=== PATIENT | female | born 1970 | race African-American/Black ===

== ENCOUNTER 2021-08-28 18:32 | Inpatient (IN) | payer OTHER ==
[~2021-08-28] VITALS: Ht 157.5 cm; Wt 70.4 kg
[~2021-08-28 18:32] MED LIST: ACYC400T20 PO; FLUO15CR TD
[2021-08-28] MEDS ORDERED: VANCOMYCIN HCL 1 GM/D5% WATER 200 ML IV ONE (23:45)
[2021-08-29 00:22] LABS: COVID AG,FIA SOURCE NASOPHARYNGEAL
[2021-08-29 00:26] LABS: BASOPHILS % (AUTO) 0.4 % (0.0-2.0); EOSINOPHILS % (AUTO) 1.8 % (1.0-6.0); HEMOGLOBIN 10.5 g/dL (12.0-16.0); LYMPHOCYTES # (AUTO) 1.2 K/uL (1.0-4.8); MEAN CORPUSCULAR HEMOGLOBIN 29.8 pg (26.0-34.0); MEAN CORPUSCULAR VOLUME 90 fL (80-100); MONOCYTES # (AUTO) 0.5 K/uL (0.1-1.0); MONOCYTES % (AUTO) 7.8 % (2.0-9.0); NEUTROPHILS # (AUTO) 4.3 K/uL (1.8-7.7); PLATELET COUNT (AUTO) 282 K/uL (150-450); RED BLOOD CELL COUNT(AUTO) 3.54 MIL/uL (4.00-5.20); RED CELL DISTRIBUTION WIDTH 13.1 % (11.5-14.5)
[2021-08-29 00:33] LABS: ANION GAP 3 mmol/L (8-16); CALCIUM, TOTAL 8.7 mg/dL (8.8-10.5); CARBON DIOXIDE 33 mmol/L (22-29); CHLORIDE 103 mmol/L (98-107); CREATININE 0.79 mg/dL (0.60-1.30); GLOMERULAR FILTR. RATE CALC > 60 mL/min (>60); GLUCOSE,RANDOM 96 mg/dL (70-110); POTASSIUM 3.7 mmol/L (3.5-5.1); SODIUM SERUM 139 mmol/L (136-145); UREA NITROGEN, BLOOD 14 mg/dL (7-18)
[2021-08-29 00:40] LABS: ALANINE AMINOTRANSFERASE 16 U/L (12-78); ALBUMIN 2.9 g/dL (3.4-5.0); ALKALINE PHOSPHATASE 104 U/L (46-116); ASPARTATE AMINOTRANSFERASE 15 U/L (15-37); BILIRUBIN,TOTAL 0.7 mg/dL (0.1-1.0); TOTAL PROTEIN, SERUM 7.4 g/dL (6.4-8.2)
[2021-08-29] MEDS ORDERED: ACETAMINOPHEN 325 MG TABLET PO PRN (01:00)
[2021-08-29] MEDS ORDERED: ONDANSETRON HCL 4 MG/2 ML VIAL IVP PRN ×2 (01:00→02:30)
[2021-08-29] MEDS ORDERED: CefTRIAXone 1 GM/DEXTROSE 50 ML IV SCH (03:00)
[2021-08-29] MEDS ORDERED: SODIUM CHLORIDE 0.9% 100 ML ONE (06:34)
[2021-08-29] MEDS ORDERED: IOHEXOL 350 MG/ML 100 ML VIAL ONE (06:34)
[2021-08-29] MEDS: HEPARIN SODIUM,PORCINE 5,000 UNITS/ML VIAL SQ SCH ×2 (08:53→19:41)
[2021-08-29] MEDS: VANCOMYCIN HCL 750 MG in DEXTROSE 5%-WATER 250 ML IV SCH ×2 (08:53→19:41)
[2021-08-29] MEDS: CLINDAMYCIN 900 MG/D5% WATER 50 ML IV SCH ×2 (13:29→21:23)
[2021-08-29] MEDS: CefTRIAXone SODIUM 2 GM in DEXTROSE 5%-WATER 50 ML IV SCH (15:26)
[2021-08-29 19:55] VITALS: BP 96/67
[2021-08-29] MEDS: ACETAMINOPHEN 325 MG TABLET PO PRN (20:43)
[2021-08-30] MEDS: VANCOMYCIN HCL 750 MG in DEXTROSE 5%-WATER 250 ML IV SCH ×3 (00:37→15:28)
[2021-08-30] MEDS: HEPARIN SODIUM,PORCINE 5,000 UNITS/ML VIAL SQ SCH ×3 (00:37→15:28)
[2021-08-30] MEDS ORDERED: INFLUENZA VIRUS VACCINE QVS 2021-22 (6MO+)/PF 60 MCG/0.5 ML SYRINGE IM. ONE (04:30)
[2021-08-30] MEDS: CLINDAMYCIN 900 MG/D5% WATER 50 ML IV SCH ×3 (05:45→20:25)
[2021-08-30 08:11] VITALS: BP 128/65
[2021-08-30] MEDS: ACETAMINOPHEN 325 MG TABLET PO PRN ×2 (08:38→14:00)
[2021-08-30 11:53] LABS: BASOPHILS % (AUTO) 0.6 % (0.0-2.0); EOSINOPHILS % (AUTO) 1.8 % (1.0-6.0); HEMATOCRIT 38.5 % (36-46); HEMOGLOBIN 12.7 g/dL (12.0-16.0); LYMPHOCYTES # (AUTO) 1.1 K/uL (1.0-4.8); LYMPHOCYTES % (AUTO) 19.3 % (22.0-44.0); MEAN CORPUSCULAR HEMOGLOBIN 29.9 pg (26.0-34.0); MEAN CORPUSCULAR HGB CONC 32.9 G/dL (31.0-37.0); MEAN CORPUSCULAR VOLUME 91 fL (80-100); MONOCYTES # (AUTO) 0.5 K/uL (0.1-1.0); MONOCYTES % (AUTO) 8.4 % (2.0-9.0); NEUTROPHILS # (AUTO) 4.2 K/uL (1.8-7.7); NEUTROPHILS % (AUTO) 69.9 % (40.0-70.0); PLATELET COUNT (AUTO) 300 K/uL (150-450); RED BLOOD CELL COUNT(AUTO) 4.24 MIL/uL (4.00-5.20); RED CELL DISTRIBUTION WIDTH 13.3 % (11.5-14.5)
[2021-08-30 12:06] LABS: ANION GAP 10 mmol/L (8-16); C-REACTIVE PROTEIN QUANT 15.12 mg/dL (0.00-0.30); CALCIUM, TOTAL 8.6 mg/dL (8.8-10.5); CARBON DIOXIDE 28 mmol/L (22-29); CHLORIDE 101 mmol/L (98-107); CREATININE 0.84 mg/dL (0.60-1.30); GLOMERULAR FILTR. RATE CALC > 60 mL/min (>60); GLUCOSE,RANDOM 80 mg/dL (70-110); POTASSIUM 3.6 mmol/L (3.5-5.1); SODIUM SERUM 139 mmol/L (136-145); UREA NITROGEN, BLOOD 11 mg/dL (7-18); VANCOMYCIN,RANDOM 24.4 mcg/mL (25.0-50.0)
[2021-08-30 14:27] VITALS: BP 120/70
[2021-08-30] MEDS: CefTRIAXone SODIUM 2 GM in DEXTROSE 5%-WATER 50 ML IV SCH (14:46)
[2021-08-30 16:32] VITALS: BP 125/67
[2021-08-30 19:25] VITALS: BP 98/62
[2021-08-31] MEDS: HEPARIN SODIUM,PORCINE 5,000 UNITS/ML VIAL SQ SCH ×3 (00:24→16:26)
[2021-08-31] MEDS: VANCOMYCIN HCL 750 MG in DEXTROSE 5%-WATER 250 ML IV SCH ×3 (00:24→16:26)
[2021-08-31 03:50] VITALS: BP 98/69
[2021-08-31] MEDS: ACETAMINOPHEN 325 MG TABLET PO PRN ×2 (04:02→08:15)
[2021-08-31] MEDS: CLINDAMYCIN 900 MG/D5% WATER 50 ML IV SCH ×3 (04:10→20:47)
[2021-08-31 06:55] LABS: ANION GAP 5 mmol/L (8-16); CALCIUM, TOTAL 8.5 mg/dL (8.8-10.5); CARBON DIOXIDE 31 mmol/L (22-29); CHLORIDE 101 mmol/L (98-107); CREATININE 0.76 mg/dL (0.60-1.30); GLOMERULAR FILTR. RATE CALC > 60 mL/min (>60); GLUCOSE,RANDOM 97 mg/dL (70-110); POTASSIUM 3.2 mmol/L (3.5-5.1); SODIUM SERUM 137 mmol/L (136-145); UREA NITROGEN, BLOOD 12 mg/dL (7-18); VANCOMYCIN,RANDOM 20.4 mcg/mL (25.0-50.0)
[2021-08-31] MEDS: VITAMINS A & D 113 GM OINTMENT TP SCH (08:04)
[2021-08-31 08:17] VITALS: BP 144/81
[2021-08-31] MEDS ORDERED: POTASSIUM CHLORIDE 20 MEQ ER TABLET PO PRN (10:45)
[2021-08-31 12:21] VITALS: BP 92/58
[2021-08-31] MEDS: CefTRIAXone SODIUM 2 GM in DEXTROSE 5%-WATER 50 ML IV SCH (15:38)
[2021-08-31 15:47] VITALS: BP 86/50
[2021-08-31 16:43] VITALS: BP 86/50
[2021-08-31] MEDS ORDERED: RABIES IMMUNE GLOBULIN/PF 300 UNITS/ML 5 ML VIAL IM. ONE (18:00)
[2021-08-31] MEDS ORDERED: PERTUSS(ACELL),DIPH,TET VAC/PF 0.5 ML SYRINGE IM. ONE (18:00)
[2021-08-31] MEDS ORDERED: RABIES VACCINE (PCEC)/PF 2.5 UNITS/ML SYRINGE IM. ONE (18:00)
[2021-08-31 19:05] VITALS: BP 101/58
[2021-09-01] MEDS: VANCOMYCIN HCL 750 MG in DEXTROSE 5%-WATER 250 ML IV SCH ×6 (00:59→23:47)
[2021-09-01] MEDS: HEPARIN SODIUM,PORCINE 5,000 UNITS/ML VIAL SQ SCH ×5 (01:00→23:31)
[2021-09-01] MEDS: ACETAMINOPHEN 325 MG TABLET PO PRN ×2 (01:46→09:30)
[2021-09-01 04:00] VITALS: BP 103/54
[2021-09-01] MEDS: CLINDAMYCIN 900 MG/D5% WATER 50 ML IV SCH ×3 (05:01→20:32)
[2021-09-01] MEDS ORDERED: SODIUM CHLORIDE 0.9% 1,000 ML ONE (08:44)
[2021-09-01] MEDS: VITAMINS A & D 113 GM OINTMENT TP SCH (09:00)
[2021-09-01 09:25] VITALS: BP 104/52
[2021-09-01 13:23] VITALS: BP 98/61
[2021-09-01 13:57] LABS: BASOPHILS % (AUTO) 0.7 % (0.0-2.0); EOSINOPHILS % (AUTO) 4.5 % (1.0-6.0); HEMATOCRIT 34.4 % (36-46); HEMOGLOBIN 11.4 g/dL (12.0-16.0); LYMPHOCYTES # (AUTO) 1.2 K/uL (1.0-4.8); LYMPHOCYTES % (AUTO) 23.8 % (22.0-44.0); MEAN CORPUSCULAR HEMOGLOBIN 29.9 pg (26.0-34.0); MEAN CORPUSCULAR HGB CONC 33.2 G/dL (31.0-37.0); MEAN CORPUSCULAR VOLUME 90 fL (80-100); MONOCYTES # (AUTO) 0.3 K/uL (0.1-1.0); MONOCYTES % (AUTO) 6.2 % (2.0-9.0); NEUTROPHILS # (AUTO) 3.3 K/uL (1.8-7.7); NEUTROPHILS % (AUTO) 64.8 % (40.0-70.0); PLATELET COUNT (AUTO) 292 K/uL (150-450); RED BLOOD CELL COUNT(AUTO) 3.82 MIL/uL (4.00-5.20); RED CELL DISTRIBUTION WIDTH 13.1 % (11.5-14.5)
[2021-09-01 14:12] LABS: ANION GAP 7 mmol/L (8-16); C-REACTIVE PROTEIN QUANT 9.79 mg/dL (0.00-0.30); CALCIUM, TOTAL 8.7 mg/dL (8.8-10.5); CARBON DIOXIDE 32 mmol/L (22-29); CHLORIDE 103 mmol/L (98-107); GLOMERULAR FILTR. RATE CALC > 60 mL/min (>60); GLUCOSE,RANDOM 91 mg/dL (70-110); POTASSIUM 3.6 mmol/L (3.5-5.1); SODIUM SERUM 142 mmol/L (136-145); UREA NITROGEN, BLOOD 16 mg/dL (7-18)
[2021-09-01] MEDS: CefTRIAXone SODIUM 2 GM in DEXTROSE 5%-WATER 50 ML IV SCH (15:40)
[2021-09-01 19:34] VITALS: BP 93/63
[2021-09-02 04:06] VITALS: BP 102/52
[2021-09-02] MEDS: CLINDAMYCIN 900 MG/D5% WATER 50 ML IV SCH ×3 (05:00→19:50)
[2021-09-02 08:31] VITALS: BP 114/76
[2021-09-02] MEDS: VANCOMYCIN HCL 750 MG in DEXTROSE 5%-WATER 250 ML IV SCH ×2 (09:25→17:02)
[2021-09-02] MEDS: VITAMINS A & D 113 GM OINTMENT TP SCH (09:26)
[2021-09-02] MEDS: HEPARIN SODIUM,PORCINE 5,000 UNITS/ML VIAL SQ SCH ×2 (09:26→17:02)
[2021-09-02 10:57] LABS: ANION GAP 4 mmol/L (8-16); CALCIUM, TOTAL 9.2 mg/dL (8.8-10.5); CARBON DIOXIDE 32 mmol/L (22-29); CHLORIDE 103 mmol/L (98-107); CREATININE 0.89 mg/dL (0.60-1.30); GLOMERULAR FILTR. RATE CALC > 60 mL/min (>60); GLUCOSE,RANDOM 83 mg/dL (70-110); SODIUM SERUM 139 mmol/L (136-145); UREA NITROGEN, BLOOD 18 mg/dL (7-18)
[2021-09-02] MEDS ORDERED: GADOTERATE MEGLUMINE 10 MMOL/20 ML VIAL IVP ONE (11:08)
[2021-09-02] MEDS: ACETAMINOPHEN 325 MG TABLET PO PRN (13:27)
[2021-09-02 16:17] VITALS: BP 97/58
[2021-09-02] MEDS: CefTRIAXone SODIUM 2 GM in DEXTROSE 5%-WATER 50 ML IV SCH (19:28)
[2021-09-02 19:48] VITALS: BP 93/57
[2021-09-03] MEDS: HEPARIN SODIUM,PORCINE 5,000 UNITS/ML VIAL SQ SCH ×3 (00:31→17:17)
[2021-09-03] MEDS: VANCOMYCIN HCL 750 MG in DEXTROSE 5%-WATER 250 ML IV SCH ×3 (00:31→21:00)
[2021-09-03] MEDS: CLINDAMYCIN 900 MG/D5% WATER 50 ML IV SCH ×3 (04:01→21:01)
[2021-09-03 05:30] VITALS: BP 111/76
[2021-09-03] MEDS: ACETAMINOPHEN 325 MG TABLET PO PRN (05:59)
[2021-09-03] MEDS: VITAMINS A & D 113 GM OINTMENT TP SCH (08:11)
[2021-09-03 08:40] VITALS: BP 90/55
[2021-09-03 10:10] LABS: ANION GAP 8 mmol/L (8-16); C-REACTIVE PROTEIN QUANT 6.09 mg/dL (0.00-0.30); CALCIUM, TOTAL 8.8 mg/dL (8.8-10.5); CARBON DIOXIDE 31 mmol/L (22-29); CHLORIDE 101 mmol/L (98-107); CREATINE KINASE, TOTAL ONLY 170 U/L (26-192); CREATININE 1.07 mg/dL (0.60-1.30); GLOMERULAR FILTR. RATE CALC > 60 mL/min (>60); GLUCOSE,RANDOM 194 mg/dL (70-110); POTASSIUM 3.9 mmol/L (3.5-5.1); SODIUM SERUM 140 mmol/L (136-145); UREA NITROGEN, BLOOD 14 mg/dL (7-18); VANCOMYCIN,RANDOM 24.4 mcg/mL (25.0-50.0)
[2021-09-03 12:28] VITALS: BP 102/69
[2021-09-03] MEDS: CefTRIAXone SODIUM 2 GM in DEXTROSE 5%-WATER 50 ML IV SCH (14:16)
[2021-09-03 16:39] VITALS: BP 90/60
[2021-09-03 19:32] VITALS: BP 99/55
[2021-09-04 00:38] VITALS: BP 96/57
[2021-09-04] MEDS: HEPARIN SODIUM,PORCINE 5,000 UNITS/ML VIAL SQ SCH ×4 (00:40→23:46)
[2021-09-04] MEDS: CLINDAMYCIN 900 MG/D5% WATER 50 ML IV SCH ×2 (04:01→14:53)
[2021-09-04 04:30] VITALS: BP 90/55
[2021-09-04 08:29] VITALS: BP 126/86
[2021-09-04] MEDS: ACETAMINOPHEN 325 MG TABLET PO PRN (08:34)
[2021-09-04] MEDS: VANCOMYCIN HCL 750 MG in DEXTROSE 5%-WATER 250 ML IV SCH ×2 (08:38→20:00)
[2021-09-04] MEDS ORDERED: RABIES VACCINE (PCEC)/PF 2.5 UNITS/ML SYRINGE IM. ONE (09:00)
[2021-09-04 14:12] LABS: ANION GAP 8 mmol/L (8-16); CALCIUM, TOTAL 9.2 mg/dL (8.8-10.5); CARBON DIOXIDE 30 mmol/L (22-29); CHLORIDE 102 mmol/L (98-107); CREATININE 0.96 mg/dL (0.60-1.30); GLOMERULAR FILTR. RATE CALC > 60 mL/min (>60); GLUCOSE,RANDOM 94 mg/dL (70-110); POTASSIUM 3.7 mmol/L (3.5-5.1); SODIUM SERUM 140 mmol/L (136-145); UREA NITROGEN, BLOOD 16 mg/dL (7-18)
[2021-09-04] MEDS: VITAMINS A & D 113 GM OINTMENT TP SCH (15:20)
[2021-09-04] MEDS: CefTRIAXone SODIUM 2 GM in DEXTROSE 5%-WATER 50 ML IV SCH (16:07)
[2021-09-04 21:25] VITALS: BP 98/60
[2021-09-05] VITALS (8 sets, daily range): BP systolic 88–152; BP diastolic 53–88
[2021-09-05] MEDS: ACETAMINOPHEN 325 MG TABLET PO PRN ×4 (04:20→20:49)
[2021-09-05 07:01] LABS: ANION GAP 5 mmol/L (8-16); C-REACTIVE PROTEIN QUANT 3.55 mg/dL (0.00-0.30); CALCIUM, TOTAL 9.3 mg/dL (8.8-10.5); CARBON DIOXIDE 31 mmol/L (22-29); CHLORIDE 102 mmol/L (98-107); CREATININE 0.99 mg/dL (0.60-1.30); GLOMERULAR FILTR. RATE CALC > 60 mL/min (>60); GLUCOSE,RANDOM 79 mg/dL (70-110); POTASSIUM 4.1 mmol/L (3.5-5.1); SODIUM SERUM 138 mmol/L (136-145); UREA NITROGEN, BLOOD 13 mg/dL (7-18); VANCOMYCIN,RANDOM 16.3 mcg/mL (25.0-50.0)
[2021-09-05] MEDS: VITAMINS A & D 113 GM OINTMENT TP SCH (09:00)
[2021-09-05] MEDS: HEPARIN SODIUM,PORCINE 5,000 UNITS/ML VIAL SQ SCH ×2 (09:55→15:22)
[2021-09-05] MEDS: VANCOMYCIN HCL 750 MG in DEXTROSE 5%-WATER 250 ML IV SCH ×2 (09:55→20:48)
[2021-09-05] MEDS: DiphenhydrAMINE HCL 25 MG CAPSULE PO PRN ×2 (14:47→20:48)
[2021-09-05] MEDS: CefTRIAXone SODIUM 2 GM in DEXTROSE 5%-WATER 50 ML IV SCH (15:23)
[2021-09-06] MEDS: HEPARIN SODIUM,PORCINE 5,000 UNITS/ML VIAL SQ SCH ×3 (00:24→15:42)
[2021-09-06 03:15] VITALS: BP 110/77
[2021-09-06 04:30] VITALS: BP 127/75
[2021-09-06 08:03] VITALS: BP 114/84
[2021-09-06] MEDS: VITAMINS A & D 113 GM OINTMENT TP SCH (09:00)
[2021-09-06 09:57] LABS: ANION GAP 7 mmol/L (8-16); CALCIUM, TOTAL 9.3 mg/dL (8.8-10.5); CARBON DIOXIDE 27 mmol/L (22-29); CHLORIDE 102 mmol/L (98-107); CREATININE 0.89 mg/dL (0.60-1.30); GLOMERULAR FILTR. RATE CALC > 60 mL/min (>60); GLUCOSE,RANDOM 105 mg/dL (70-110); POTASSIUM 3.9 mmol/L (3.5-5.1); SODIUM SERUM 136 mmol/L (136-145); UREA NITROGEN, BLOOD 14 mg/dL (7-18)
[2021-09-06] MEDS: DiphenhydrAMINE HCL 25 MG CAPSULE PO PRN ×3 (10:26→21:27)
[2021-09-06] MEDS: VANCOMYCIN HCL 750 MG in DEXTROSE 5%-WATER 250 ML IV SCH ×2 (10:26→20:18)
[2021-09-06] MEDS: ACETAMINOPHEN 325 MG TABLET PO PRN ×2 (10:33→21:27)
[2021-09-06 12:13] VITALS: BP 94/68
[2021-09-06] MEDS: CefTRIAXone SODIUM 2 GM in DEXTROSE 5%-WATER 50 ML IV SCH (15:42)
[2021-09-06 16:10] VITALS: BP 100/51
[2021-09-06 19:15] VITALS: BP 97/60
[2021-09-07] MEDS: HEPARIN SODIUM,PORCINE 5,000 UNITS/ML VIAL SQ SCH ×3 (01:22→15:08)
[2021-09-07 02:16] VITALS: BP 114/83
[2021-09-07] MEDS: DiphenhydrAMINE HCL 25 MG CAPSULE PO PRN ×3 (04:58→15:08)
[2021-09-07] MEDS: ACETAMINOPHEN 325 MG TABLET PO PRN ×3 (04:59→15:08)
[2021-09-07 07:49] LABS: ANION GAP 3 mmol/L (8-16); CALCIUM, TOTAL 9.3 mg/dL (8.8-10.5); CARBON DIOXIDE 30 mmol/L (22-29); CHLORIDE 103 mmol/L (98-107); CREATININE 0.95 mg/dL (0.60-1.30); GLOMERULAR FILTR. RATE CALC > 60 mL/min (>60); GLUCOSE,RANDOM 73 mg/dL (70-110); POTASSIUM 4.6 mmol/L (3.5-5.1); SODIUM SERUM 136 mmol/L (136-145); UREA NITROGEN, BLOOD 11 mg/dL (7-18)
[2021-09-07] MEDS: VANCOMYCIN HCL 750 MG in DEXTROSE 5%-WATER 250 ML IV SCH (09:33)
[2021-09-07] MEDS: VITAMINS A & D 113 GM OINTMENT TP SCH (09:45)
[2021-09-07 14:12] VITALS: BP 109/81
[2021-09-07] MEDS: CefTRIAXone SODIUM 2 GM in DEXTROSE 5%-WATER 50 ML IV SCH (15:09)
[2021-09-07] MEDS ORDERED: CEFX2I IV (15:40)
[2021-09-07] MEDS ORDERED: VANC750P15 IVPB (15:43)
[2021-09-07] MEDS ORDERED: DIPH25CA85 PO (15:45)
[2021-09-07] MEDS ORDERED: PETR113O TP (15:45)
[2021-09-07] MEDS ORDERED: [UNRECOGNIZED DRUG - CODE] IM ×2 (15:47→15:48)
[2021-09-07] MEDS ORDERED: VANC750F IV (16:13)
[2021-09-08] MEDS ORDERED: RABIES VACCINE (PCEC)/PF 2.5 UNITS/ML SYRINGE IM. ONE (09:00)
[2021-09-15] MEDS ORDERED: RABIES VACCINE (PCEC)/PF 2.5 UNITS/ML SYRINGE IM. ONE (09:00)
== END 2021-09-07 15:50 | disposition home health service (06) | DRG 383 ==
LOC: EMS 18:33 → 6S 08-29 02:23
PROVIDERS: ADMIT Internal Medicine; ATTEND Internal Medicine
PROC: 05HY33Z Insertion of Infusion Device into Upper Vein, Percutaneous Approach (ICD-10-PCS; principal; 2021-09-05)
DX: L03.116 Cellulitis of left lower limb (principal); E87.3 Alkalosis; R45.851 Suicidal ideations; E44.0 Moderate protein-calorie malnutrition; D64.9 Anemia, unspecified; G62.9 Polyneuropathy, unspecified; E87.6 Hypokalemia; Z20.822 Contact with and (suspected) exposure to COVID-19; L03.115 Cellulitis of right lower limb; L29.9 Pruritus, unspecified; Z59.00 Homelessness unspecified; W53.11XA Bitten by rat, initial encounter; Z90.49 Acquired absence of other specified parts of digestive tract; Y93.89 Activity, other specified; Y92.89 Other specified places as the place of occurrence of the external cause; Y99.8 Other external cause status; Z68.28 Body mass index [BMI] 28.0-28.9, adult
CPT/HCPCS: 71045; 73701; 80048; 80053; 80202; 82550; 84145; 85025; 86140; 87040; 90375; 90675; 90715; 93970; 99285; J0696; J1644; J3370; J3490; J7030; J7050; J7060; Q9967; 36415-L1; 36415-TC

== ENCOUNTER 2021-09-22 22:01 | Emergency (ER) | payer OTHER ==
[~2021-09-22] VITALS: Ht 157.5 cm; Wt 71.8 kg
[~2021-09-22 22:01] MED LIST changes: +CEFX2I IV; +DIPH25CA85 PO; +PETR113O TP; +VANC750F IV; +[UNRECOGNIZED DRUG - CODE] IM
[2021-09-23] MEDS ORDERED: CEPHALEXIN MONOHYDRATE 500 MG CAPSULE PO ONE (00:30)
[2021-09-23 02:10] VITALS: BP 125/68
== END 2021-09-23 02:10 | disposition home or self-care (01) ==
LOC: EMS 22:02
DX: L03.116 Cellulitis of left lower limb (principal); F99 Mental disorder, not otherwise specified; Z90.89 Acquired absence of other organs
CPT/HCPCS: 99283

== ENCOUNTER 2021-10-17 19:20 | Emergency (ER) | payer OTHER ==
[~2021-10-17] VITALS: Ht 157.5 cm; Wt 71.8 kg
[2021-10-17 21:00] VITALS: BP 132/77
[2021-10-17] MEDS ORDERED: CEPHALEXIN MONOHYDRATE 500 MG CAPSULE PO ONE (21:15)
== END 2021-10-17 22:43 | disposition home or self-care (01) ==
LOC: EMS 19:20
DX: I87.8 Other specified disorders of veins (principal); L03.116 Cellulitis of left lower limb; L03.115 Cellulitis of right lower limb; L30.9 Dermatitis, unspecified; F99 Mental disorder, not otherwise specified; Z90.89 Acquired absence of other organs
CPT/HCPCS: 99283

== ENCOUNTER 2021-11-03 17:51 | Emergency (ER) | payer OTHER ==
[~2021-11-03] VITALS: Ht 157.5 cm; Wt 71.8 kg
[~2021-11-03 17:51] MED LIST changes: -ACYC400T20 PO; -CEFX2I IV; -FLUO15CR TD; -VANC750F IV; -[UNRECOGNIZED DRUG - CODE] IM
[2021-11-03 19:38] LABS: BASOPHILS % (AUTO) 0.4 % (0.0-2.0); EOSINOPHILS % (AUTO) 3.9 % (1.0-6.0); HEMATOCRIT 33.6 % (36-46); HEMOGLOBIN 10.7 g/dL (12.0-16.0); LYMPHOCYTES # (AUTO) 1.2 K/uL (1.0-4.8); LYMPHOCYTES % (AUTO) 18.2 % (22.0-44.0); MEAN CORPUSCULAR HEMOGLOBIN 29.1 pg (26.0-34.0); MEAN CORPUSCULAR HGB CONC 31.9 G/dL (31.0-37.0); MEAN CORPUSCULAR VOLUME 91 fL (80-100); MONOCYTES # (AUTO) 0.4 K/uL (0.1-1.0); NEUTROPHILS # (AUTO) 4.8 K/uL (1.8-7.7); NEUTROPHILS % (AUTO) 71.5 % (40.0-70.0); PLATELET COUNT (AUTO) 346 K/uL (150-450); RED BLOOD CELL COUNT(AUTO) 3.69 MIL/uL (4.00-5.20); RED CELL DISTRIBUTION WIDTH 15.5 % (11.5-14.5)
[2021-11-03 19:48] LABS: ANION GAP 9 mmol/L (8-16); CALCIUM, TOTAL 8.7 mg/dL (8.8-10.5); CARBON DIOXIDE 28 mmol/L (22-29); CHLORIDE 105 mmol/L (98-107); CREATININE 0.97 mg/dL (0.60-1.30); GLOMERULAR FILTR. RATE CALC > 60 mL/min (>60); GLUCOSE,RANDOM 72 mg/dL (70-110); POTASSIUM 3.4 mmol/L (3.5-5.1); SODIUM SERUM 142 mmol/L (136-145); UREA NITROGEN, BLOOD 17 mg/dL (7-18)
[2021-11-03 19:53] LABS: ALANINE AMINOTRANSFERASE 14 U/L (12-78); ALBUMIN 3.1 g/dL (3.4-5.0); ALKALINE PHOSPHATASE 132 U/L (46-116); ASPARTATE AMINOTRANSFERASE 30 U/L (15-37); BILIRUBIN,TOTAL 0.2 mg/dL (0.1-1.0); TOTAL PROTEIN, SERUM 4.1 g/dL (6.4-8.2)
[2021-11-03 19:59] LABS: B-TYPE NATRIURETIC PEPTIDE 26 pg/mL (0-100)
[2021-11-03] MEDS ORDERED: ACETAMINOPHEN 500 MG TABLET PO ONE (20:00)
[2021-11-03] MEDS ORDERED: CEPH-558 PO (20:03)
[2021-11-03] MEDS ORDERED: DiphenhydrAMINE HCL 50 MG CAPSULE PO ONE (20:30)
[2021-11-03 20:37] VITALS: BP 120/70
== END 2021-11-03 20:44 | disposition home or self-care (01) ==
LOC: EMS 17:55
DX: I87.2 Venous insufficiency (chronic) (peripheral) (principal); Z79.899 Other long term (current) drug therapy
CPT/HCPCS: 80053; 83880; 85025; 93970; 99285

== ENCOUNTER 2022-01-08 10:31 | Emergency (ER) | payer OTHER ==
[~2022-01-08] VITALS: Ht 157.5 cm; Wt 48.2 kg
[~2022-01-08 10:31] MED LIST changes: +CEPH-558 PO
[2022-01-08] MEDS ORDERED: POTA8TAB71 PO (10:44)
[2022-01-08 13:53] VITALS: BP 140/80
[2022-01-08] MEDS ORDERED: PETROLATUM,WHITE 5 GM PACKET JELLY TP ONE (14:30)
[2022-01-08] MEDS ORDERED: FURO20TA4 PO (14:33)
[2022-01-08] MEDS ORDERED: POTA-185 PO (14:33)
[2022-01-08] MEDS ORDERED: FUROSEMIDE 20 MG TABLET PO ONE (14:45)
[2022-01-08] MEDS ORDERED: DiphenhydrAMINE HCL 25 MG CAPSULE PO ONE (14:45)
== END 2022-01-08 15:19 | disposition home or self-care (01) ==
LOC: EMS 10:31
DX: I87.2 Venous insufficiency (chronic) (peripheral) (principal); I87.8 Other specified disorders of veins; Z87.19 Personal history of other diseases of the digestive system; Z87.39 Personal history of other diseases of the musculoskeletal system and connective tissue; Z90.49 Acquired absence of other specified parts of digestive tract; Z98.890 Other specified postprocedural states; Z59.00 Homelessness unspecified
CPT/HCPCS: 99284; Z7502; Z7610

== ENCOUNTER 2022-02-06 15:10 | Emergency (ER) | payer OTHER ==
[~2022-02-06] VITALS: Ht 157.5 cm; Wt 75.4 kg
[~2022-02-06 15:10] MED LIST changes: -CEPH-558 PO; -DIPH25CA85 PO; +FURO20TA4 PO; -PETR113O TP; +POTA-185 PO
[2022-02-06 17:55] LABS: BASOPHILS % (AUTO) 0.6 % (0.0-2.0); EOSINOPHILS % (AUTO) 0.8 % (1.0-6.0); HEMOGLOBIN 11.2 g/dL (12.0-16.0); LYMPHOCYTES # (AUTO) 0.9 K/uL (1.0-4.8); LYMPHOCYTES % (AUTO) 30.1 % (22.0-44.0); MEAN CORPUSCULAR HEMOGLOBIN 28.1 pg (26.0-34.0); MEAN CORPUSCULAR HGB CONC 32.1 G/dL (31.0-37.0); MEAN CORPUSCULAR VOLUME 88 fL (80-100); MONOCYTES # (AUTO) 0.3 K/uL (0.1-1.0); NEUTROPHILS # (AUTO) 1.8 K/uL (1.8-7.7); NEUTROPHILS % (AUTO) 58.5 % (40.0-70.0); PLATELET COUNT (AUTO) 251 K/uL (150-450); RED CELL DISTRIBUTION WIDTH 16.1 % (11.5-14.5)
[2022-02-06 18:03] LABS: ANION GAP 9 mmol/L (8-16); CALCIUM, TOTAL 8.9 mg/dL (8.8-10.5); CARBON DIOXIDE 29 mmol/L (22-29); CHLORIDE 103 mmol/L (98-107); CREATININE 0.83 mg/dL (0.60-1.30); GLOMERULAR FILTR. RATE CALC > 60 mL/min (>60); GLUCOSE,RANDOM 84 mg/dL (70-110); POTASSIUM 3.3 mmol/L (3.5-5.1); SODIUM SERUM 141 mmol/L (136-145); UREA NITROGEN, BLOOD 7 mg/dL (7-18)
[2022-02-06 18:09] LABS: ALANINE AMINOTRANSFERASE 19 U/L (12-78); ALBUMIN 3.6 g/dL (3.4-5.0); ALKALINE PHOSPHATASE 105 U/L (46-116); ASPARTATE AMINOTRANSFERASE 27 U/L (15-37); BILIRUBIN,TOTAL 0.3 mg/dL (0.1-1.0); TOTAL PROTEIN, SERUM 8.4 g/dL (6.4-8.2)
[2022-02-06] MEDS ORDERED: POTA-206 PO (18:23)
[2022-02-06] MEDS ORDERED: TRIA15CR49 TP (18:24)
[2022-02-06 19:01] VITALS: BP 113/60
[2022-02-06] MEDS ORDERED: CEPH-558 PO (19:16)
== END 2022-02-06 19:49 | disposition home or self-care (01) ==
LOC: EMS 15:11
DX: L03.116 Cellulitis of left lower limb (principal); L03.115 Cellulitis of right lower limb; R19.7 Diarrhea, unspecified; Z86.2 Personal history of diseases of the blood and blood-forming organs and certain disorders involving the immune mechanism; Z87.898 Personal history of other specified conditions; Z90.49 Acquired absence of other specified parts of digestive tract; Z98.890 Other specified postprocedural states
CPT/HCPCS: 99284; 80053; 85025; 36415; 74022; 96372; J0690

== ENCOUNTER 2022-03-08 17:36 | Emergency (ER) | payer OTHER ==
[~2022-03-08] VITALS: Ht 157.5 cm; Wt 68.2 kg
[~2022-03-08 17:36] MED LIST changes: +CEPH-558 PO; -POTA-185 PO; +POTA-206 PO; +TRIA15CR49 TP
[2022-03-08 17:44] VITALS: BP 133/82
== END 2022-03-08 18:49 | disposition left against medical advice (07) ==
LOC: EMS 17:42
DX: Z53.21 Procedure and treatment not carried out due to patient leaving prior to being seen by health care provider (principal)

== ENCOUNTER 2022-03-12 12:26 | Emergency (ER) | payer OTHER ==
[~2022-03-12] VITALS: Ht 157.5 cm; Wt 67.3 kg
[~2022-03-12 12:26] MED LIST changes: -POTA-206 PO
[2022-03-12] MEDS ORDERED: CALA177S9 TP (13:59)
[2022-03-12] MEDS ORDERED: DOXY-354 PO (13:59)
[2022-03-12 14:01] VITALS: BP 124/76
== END 2022-03-12 14:22 | disposition home or self-care (01) ==
LOC: EMS 12:27
DX: L02.416 Cutaneous abscess of left lower limb (principal); I87.2 Venous insufficiency (chronic) (peripheral); F41.9 Anxiety disorder, unspecified; Z90.49 Acquired absence of other specified parts of digestive tract; Z98.890 Other specified postprocedural states
CPT/HCPCS: 99281; 99283

== ENCOUNTER 2022-04-03 16:18 | Emergency (ER) | payer OTHER ==
[~2022-04-03] VITALS: Ht 153 cm; Wt 68.2 kg
[~2022-04-03 16:18] MED LIST changes: +CALA177S9 TP; +DOXY-354 PO
[2022-04-03] MEDS ORDERED: FURO20 PO (17:28)
[2022-04-03] MEDS ORDERED: DOXY-354 PO (17:28)
[2022-04-03] MEDS ORDERED: POTA8TAB71 PO (17:28)
[2022-04-03] MEDS ORDERED: CEPH-558 PO (17:28)
[2022-04-03] MEDS ORDERED: RABIES VACCINE (PCEC)/PF 2.5 UNITS/ML SYRINGE IM. ONE (17:30)
[2022-04-03 17:31] VITALS: BP 148/80
[2022-04-03] MEDS ORDERED: TRIAMCINOLONE 0.025% 15 GM CREAM TP ONE (18:00)
== END 2022-04-03 18:35 | disposition home or self-care (01) ==
LOC: EMS 16:23
DX: R60.0 Localized edema (principal); I87.2 Venous insufficiency (chronic) (peripheral); Z59.00 Homelessness unspecified; Z90.49 Acquired absence of other specified parts of digestive tract
CPT/HCPCS: 90471; 90675; 99283

== ENCOUNTER 2022-04-24 10:06 | Emergency (ER) | payer OTHER ==
[~2022-04-24] VITALS: Ht 154.9 cm; Wt 57.3 kg
[~2022-04-24 10:06] MED LIST changes: +FURO20 PO; -FURO20TA4 PO; +POTA8TAB71 PO
[2022-04-24 14:55] VITALS: BP 125/72
== END 2022-04-24 15:20 | disposition home or self-care (01) ==
LOC: EMS 10:35
DX: I87.2 Venous insufficiency (chronic) (peripheral) (principal); Z98.890 Other specified postprocedural states; Z59.00 Homelessness unspecified
CPT/HCPCS: 99281; Z7502

== ENCOUNTER 2022-05-10 02:11 | Emergency (ER) | payer OTHER ==
[~2022-05-10] VITALS: Ht 157.5 cm; Wt 75.5 kg
[2022-05-10] MEDS ORDERED: DOXYCYCLINE HYCLATE 100 MG TABLET PO ONE (03:00)
[2022-05-10] MEDS ORDERED: ACETAMINOPHEN 500 MG TABLET PO ONE (03:00)
[2022-05-10] MEDS ORDERED: BACITRACIN 0.9 GM PACKET OINTMENT TP ONE (03:00)
[2022-05-10 04:00] VITALS: BP 118/71
[2022-05-10] MEDS ORDERED: BACI28OI29 TP (04:02)
[2022-05-10] MEDS ORDERED: DOXY-354 PO (04:02)
== END 2022-05-10 05:15 | disposition home or self-care (01) ==
LOC: EMS 02:14
DX: S80.922A Unspecified superficial injury of left lower leg, initial encounter (principal); S80.921A Unspecified superficial injury of right lower leg, initial encounter; R60.0 Localized edema; Z90.49 Acquired absence of other specified parts of digestive tract; Z98.890 Other specified postprocedural states; X58.XXXA Exposure to other specified factors, initial encounter; Y93.89 Activity, other specified; Y92.89 Other specified places as the place of occurrence of the external cause; Y99.8 Other external cause status
CPT/HCPCS: 99284; Z7502; Z7610

== ENCOUNTER 2022-05-31 15:57 | Emergency (ER) | payer OTHER ==
[~2022-05-31] VITALS: Ht 157.5 cm; Wt 54.5 kg
[~2022-05-31 15:57] MED LIST changes: +BACI28OI29 TP
[2022-05-31] MEDS ORDERED: BACITRACIN 0.9 GM PACKET OINTMENT TP ONE (17:00)
[2022-05-31 17:09] VITALS: BP 133/78
== END 2022-05-31 17:24 | disposition home or self-care (01) ==
LOC: EMS 15:57
DX: I87.2 Venous insufficiency (chronic) (peripheral) (principal); R55 Syncope and collapse; Z79.899 Other long term (current) drug therapy
CPT/HCPCS: 99282; Z7502; Z7610

== ENCOUNTER 2022-06-05 10:04 | Emergency (ER) | payer OTHER ==
[~2022-06-05] VITALS: Ht 157.5 cm; Wt 76.0 kg
[2022-06-05 10:41] VITALS: BP 141/59
[2022-06-05] MEDS ORDERED: CEPH-558 PO (12:26)
== END 2022-06-05 13:08 | disposition home or self-care (01) ==
LOC: EMS 10:06
DX: I87.2 Venous insufficiency (chronic) (peripheral) (principal); F20.9 Schizophrenia, unspecified; F15.90 Other stimulant use, unspecified, uncomplicated; Z98.890 Other specified postprocedural states; Z59.00 Homelessness unspecified
CPT/HCPCS: 99283